=== PATIENT | male | born 1965 | race Caucasian/White ===

== ENCOUNTER 2021-05-11 17:28 | Inpatient (IN) | payer OTHER, SELFPAY ==
--- NOTE | ~2021-05-11 | CT_ITS ---
EXAMINATION: CT ABDOMEN AND PELVIS WITHOUT CONTRAST CLINICAL INFORMATION: Left flank pain. Umbilical hernia. COMPARISON: None TECHNIQUE: Multidetector volumetric imaging was performed from the superior aspect of the liver through the pubic symphysis. Sagittal and coronal reformatted images were obtained on the technologist's workstation. This CT examination was performed using dose optimization techniques as appropriate, variously including the following: *Automated exposure control *Adjustment of mA and/or kV according to patient size (this includes techniques or standardized protocols for targeted exams where dose is matched to indication/reason for exam; i.e. extremities or head) *Use of iterative reconstruction technique DLP: 661 mGy-cm FINDINGS: LUNG BASES: The visualized lung bases are unremarkable. LIVER, GALLBLADDER, AND BILIARY TREE: The liver is normal in size, shape, and attenuation. No focal hepatic lesion or biliary ductal dilatation is present. The gallbladder is unremarkable with no evidence of radiopaque gallstones, gallbladder wall thickening, or obvious pericholecystic inflammatory changes. PANCREAS: Unremarkable. SPLEEN: Unremarkable. ADRENAL GLANDS: Unremarkable. KIDNEYS AND URETERS: The kidneys are normal in size, shape, and attenuation. No hydronephrosis or hydroureter. There is a left upper pole 0.4 cm calculus which is 11 cm from the posterior axillary line. BLADDER: Unremarkable. GASTROINTESTINAL TRACT: The stomach is unremarkable. Normal caliber small bowel. There is no obstruction. Colonic diverticulosis is present. There is focal significant colonic wall thickening at the distal descending colon. Prominent adjacent inflammation. No fluid collection. No free air. ABDOMINAL WALL: Small fat-containing umbilical hernia. No inflammatory change. LYMPH NODES: Normal. VASCULAR: Unremarkable. PELVIC VISCERA: The prostate and seminal vesicles are unremarkable. OSSEOUS STRUCTURES: No acute or suspicious osseous abnormality. CT/CT abdomen pelvis wo con IMPRESSION: Acute diverticulitis of the distal descending colon. No free air or fluid collection.
[2021-05-11 19:35] VITALS: BP 146/92; PULSE 81; RESP 20; TEMP 37.2; O2SAT 100; BMI 28.0
[2021-05-11 19:52] LABS: Appearance Urine HAZY; Color Urine DK YELLOW; Glucose Urine UA NEG (NEG); Leukocyte Esterase Urine TRACE (NEG); Nitrite Urine NEG (NEG); Specific Gravity - Urine 1.015 (1.005-1.025); UACC Culture Trigger YES; Urine Blood 2+ (NEG); Urine Ketones NEG (NEG); Urine Protein 1+ MG/DL (NEG-TRACE)
[2021-05-11 20:28] LABS: Mucus Urine 2+ /LPF; Squamous Epithelial Cell Urine 1+ /LPF
[2021-05-11 20:29] LABS: Bacteria Urine TRACE /LPF; WBC Urine 0-2 /HPF (0-4)
[2021-05-11 20:33] LABS: Basophils Percent Auto 0.1 % (0-2); Eosinophils Percent Auto 0.1 % (0-4); Hematocrit 38.2 % (42-52); Hemoglobin 13.4 g/dl (14.0-18.0); Imm Gran Abs Auto 0.06 X10*3/uL (0.00-0.03); Imm Gran Pct Auto 0.4 % (0.0-0.4); Lymphocytes Absolute Auto 1.5 X10*3/uL (1.2-4.9); Lymphocytes Percent Auto 8.9 % (20-40); MANUAL DIFF FLAG SCAN; Mean Corpuscular HGB Conc 35.1 g/dl (31.0-36.0); Mean Corpuscular Hemoglobin 31.6 pg (27.0-33.0); Mean Corpuscular Volume 90.1 fL (80-98); Mean Platelet Volume 9.6 fL (9.4-12.4); Monocytes Absolute Auto 1.6 X10*3/uL (0.1-1.2); Monocytes Percent Auto 9.3 % (2-11); Neutrophils Absolute Auto 13.6 X10*3/uL (2.0-8.3); Neutrophils Percent Auto 81.2 % (45-73); Platelet Count 189 X10*3/uL (160-400); Red Blood Count 4.24 X10*6/uL (4.60-5.80); Red Cell Distribution Width 11.9 % (11.0-16.0); SCAN SMEAR FLAG 1; White Blood Count 16.7 X10*3/uL (4.8-10.8)
[2021-05-11 20:39] LABS: Anion Gap 11 (12-20); Blood Urea Nitrogen 11 mg/dL (9-16); Calcium 9.4 mg/dL (8.4-10.2); Carbon Dioxide 27 mmol/L (22-29); Chloride 103 mmol/L (96-108); Creatinine Clr Calc Pharmacy 88.9; Estimated Glomerular Filt Rate > 60; Glucose Random 102 mg/dL (60-115); Potassium 4.1 mmol/L (3.3-5.1); Sodium 137 mmol/L (135-145)
[2021-05-11 20:49] LABS: SLIDE REVIEW VERIFIED
[2021-05-11 23:25] VITALS: BP 106/64; PULSE 104; RESP 15; O2SAT 93
--- NOTE | 2021-05-12 00:30 | ED.GENADULT ---
HPI - General Adult General Chief complaint: General Medical Stated complaint: Umbilical hernia Time Seen by Provider: 05/12/21 00:09 Source: patient Mode of arrival: ambulatory Limitations: no limitations History of Present Illness HPI narrative: 55-year-old male who presents emergency department for evaluation of left flank pain and abdominal pain x2. Patient states that yesterday he had a sudden onset of left-sided flank pain. He describes the pain as if someone is punching him constantly in his left flank area. The pain does radiate to his left lower abdomen into his testicles. He states the pain is a constant 10/10 pain. He denied frequency, urgency or dysuria. Patient also has an umbilical hernia that he has had for months any scheduled for hernia repair at [facility] in June of 2021. He states that when he saw the [facility] surgeon 3 months ago, the surgeon pushed on the umbilical hernia to reduce it. The patient states that the reduction was unsuccessful but since then he is having pain is umbilical area. He states for the past 2 days the umbilical hernia is more painful and is hard. He denied fever, chills, chest pain, shortness of breath, nausea, vomiting, changes bowel movements. Related Data Allergies Allergy/AdvReac Type Severity Reaction Status Date / Time No Known Allergies Allergy Verified 05/12/21 00:28 Review of Systems Review of Systems: Yes all other systems are reviewed and are negative [facility] Past Medical History [facility] Narrative: Past medical history: hypertension, umbilical hernia Past surgical history: None. Social history: Denies tobacco use. The patient does drink alcohol on the weekends he states that he drinks 3-4 beers over weekend. He denies drug use. Medical History HTN (hypertension) Umbilical hernia Social History Social History Advance Directives: No Physical Exam Vital Signs: Vital Signs: Last Vital Signs Temp 98.9 F 05/11/21 19:35 Pulse 104 H 05/11/21 23:25 Resp 15 05/11/21 23:25 BP 106/64 05/11/21 23:25 Pulse Ox 93 05/11/21 23:25 Body Mass Index 28.0 Const: General: cooperative and no acute distress Orientation/consciousness: oriented to person and oriented to place Limitations: no limitations HENMT: Head: Yes normal to inspection, Yes normocephalic and Yes atraumatic Ears: external ears normal General nose exam: Normal external nose present Face and sinus: Yes normal facial exam Mouth: Normal oral and palatal mucosa present Throat: Yes posterior oropharynx normal Eyes: General: appearance normal, both eyes and all related structures Pupils: Equal, round and reactive pupils present Neck: Neck: Yes normal visual inspection, Yes no lymphadenopathy, Yes trachea midline and Yes supple Chest: Chest palpation & inspection: normal inspection of the chest and normal palpation of entire chest wall Resp: Effort & Inspection: normal respiratory effort and able to speak in complete sentences Auscultation: clear to auscultation bilaterally Cardio: Rate: regular rate Rhythm: regular rhythm Heart sounds: S1 normal heart sound present, S2 normal heart sound present and no murmurs GI: Inspection: Yes normal to inspection Palpation (GI): Soft to palpation, Tenderness to palpation present (GI) in the LLQ (Moderate) and periumbilically (Umbilical hernia which is hard, very tender to palpation, not easily reducible) and no guarding Auscultation: normal bowel sounds : General: Yes CVA tenderness (Left, moderate) Back/Spine/Pelvis: Back: CVA tenderness (Left, moderate) Skin: General skin exam: no rashes or lesions noted Neuro: General: oriented to person and oriented to place Cranial nerves: Yes CN's II-XII intact bilaterally and Yes Equal, round and reactive pupils present Cognition (Neuro): normal cognition Motor exam (neuro): 5/5 motor strength present throughout Extrem: General: Yes normal to inspection Psych: Appearance: grossly normal Speech and movement: Normal speech and movement present Affect: normal affect Attitude: cooperative Thought process: Normal thought process present Thought content: Normal thought content present Course Course Course Narrative: 55-year-old male who presents emergency department for evaluation of left flank pain and periumbilical pain times 2 days. The pain came on suddenly in the left flank area does radiate the left lower quadrant into his left testicle. Patient does have an umbilical hernia as well which the patient states is hard and more tender than usual. Vital signs revealed elevated blood pressure of 146/92 and tachycardia with a pulse of 104. Physical examination did reveal left-sided CVA tenderness as well as tenderness with palpation of his left lower quadrant. He also has tenderness with palpation over the umbilical hernia, the hernias hard and not easily reducible. Laboratory evaluation revealed an elevated WBC of 16,700, kidney function was normal. Urinalysis revealed 2+ blood and trace leukocyte esterase. Microscopic revealed up to 14 RBCs no WBCs and trace bacteria. Differential includes but is not limited to kidney stone, ureteral stone, diverticulitis, incarcerated umbilical hernia. Patient was ordered to get Toradol [address] scan of the abdomen pelvis without IV contrast will be obtained. 0128: The patient's CT scan of the abdomen pelvis revealed descending diverticulitis with colon wall thickening with no free air or perforation. The patient does have a left lower pole 4 mm kidney stone and an umbilical hernia containing fat only, these are not the cause of his pain. The patient only had minimal relief with the IV Toradol. He was ordered to get Levaquin 750 mg IV and Flagyl 500 mg IV. His pain will be treated with morphine 4 mg IV and was also ordered to get normal saline x1 L. 0259: The patient got no relief the 1st dose of morphine. Patient was ordered to get a 2nd dose of morphine 4 mg IV. The patient's abdominal exam showed that he still has significant left lower quadrant tenderness but this is unchanged Given his persistent pain and tenderness , IM concerned that the patient will not be able to control his pain at home, therefore I will discuss the patient's presentation with the covering hospitalist for admission. 0348: I did discuss the patient's presentation with the covering hospitalist, Dr. Cardenas and the patient will be admitted to the hospital service for further treatment. Medical Decision Making Lab Data Result diagrams: 05/11/21 20:14 05/11/21 20:14 Labs: Lab Results 05/11/21 05/11/21 05/11/21 Range/Units 19:46 20:14 20:14 WBC 16.7 H (4.8-10.8) X10*3/uL RBC 4.24 L (4.60-5.80) X10*6/uL Hgb 13.4 L (14.0-18.0) g/dl Hct 38.2 L (42-52) % MCV 90.1 (80-98) fL MCH 31.6 (27.0-33.0) pg MCHC 35.1 (31.0-36.0) g/dl RDW 11.9 (11.0-16.0) % Plt Count 189 (160-400) X10*3/uL MPV 9.6 (9.4-12.4) fL Immature Gran % (Auto) 0.4 (0.0-0.4) % Neut % (Auto) 81.2 H (45-73) % Lymph % (Auto) 8.9 L (20-40) % [place] % (Auto) 9.3 (2-11) % Eos % (Auto) 0.1 (0-4) % Baso % (Auto) 0.1 (0-2) % Lymph # (Auto) 1.5 (1.2-4.9) X10*3/uL [place] # (Auto) 1.6 H (0.1-1.2) X10*3/uL Eos # (Auto) 0.0 (0.0-0.4) X10*3/uL Baso # (Auto) 0.0 (0.0-0.2) X10*3/uL Abs Immat Gran (auto) 0.06 H (0.00-0.03) X10*3/uL Absolute Neuts (auto) 13.6 H (2.0-8.3) X10*3/uL Absolute Nucleated RBC 0.000 (0.0-0.012) X10*3/uL Nucleated RBC % (auto) 0.0 (0.0-0.2) /100WBC Smear Tech's Comments VERIFIED Sodium 137 (135-145) mmol/L Potassium 4.1 (3.3-5.1) mmol/L Chloride 103 (96-108) mmol/L Carbon Dioxide 27 (22-29) mmol/L Anion Gap 11 L (12-20) BUN 11 (9-16) mg/dL Creatinine 1.21 (0.5-1.4) mg/dL Estim Creat Clear Calc 88.9 Estimated GFR > 60 Random Glucose 102 (60-115) mg/dL Calcium 9.4 (8.4-10.2) mg/dL Urine Color DK YELLOW Urine Appearance HAZY Urine pH 7.0 (5.0-8.0) Ur Specific [place] 1.015 (1.005-1.025) Urine Protein 1+ H (NEG-TRACE) MG/DL Urine Glucose (UA) NEG (NEG) MG/DL Urine Ketones NEG (NEG) MG/DL Urine Blood 2+ H (NEG) Urine Nitrite NEG (NEG) Ur Leukocyte Esterase TRACE H (NEG) Urine RBC 10-14 H (0) /HPF Urine WBC 0-2 (0-4) /HPF Ur Squamous Epith Cells 1+ /LPF Urine Bacteria TRACE /LPF Urine Mucus 2+ /LPF
[2021-05-12] MEDS: Ketorolac Tromethamine 15 MG/ML VIAL 30 MG IVPUSH (00:50)
[2021-05-12] MEDS: 0.9 % Sodium Chloride 1,000 ML 999 ML IV (01:59)
[2021-05-12] MEDS: Morphine Sulfate 4 MG/ML CARTRIDGE IVPUSH ×3 (02:01→09:04)
[2021-05-12] MEDS: metroNIDAZOLE/NS 500 MG/100 ML PIGGYBACK 100 MG IV ×4 (02:03→20:28)
[2021-05-12] MEDS: levoFLOXacin 750 MG TABLET PO (02:06)
--- NOTE | 2021-05-12 03:45 | P.HPHOSP_ITS ---
History of Present Illness Date of Service: 05/12/21 Chief Complaint: Abdominal pain This is a 55-year-old male with past medical history of hypertension who presents to the hospital with complaints of left lower quadrant abdominal pain that started yesterday. Patient reports the pain to be 10/10, constant, show report crampy, radiating to the back, associated with nausea, no vomiting or diarrhea. No constipation. Patient reports a fever of 102.5 at home. He is also having chills. Denies any chest pain, no shortness of breath, no headache or change in vision, no cough. No urinary symptoms and no lower extremity edema. Patient reports history of umbilical hernia status post hernia repair. On arrival to the ED patient's vital significant for heart rate of 104, temperature of 98.9?, respiratory rate of 15, blood pressure of 106/64, satting 100% on room air Labs are significant for WBC count of 16.7, hemoglobin of 13.4, UA that is positive for leukocyte Estrace as well as WBC, abdominal pelvic CT shows acute diverticulitis of the distal descending colon with no free air or fluid collection. Patient will be admitted for further management as he has intolerance to pain post IV pain medication. Review of Systems Review of Systems: Yes all other systems are reviewed and are negative [facility] Medical History (Updated 05/12/21 @ 06:26 by Candis Cardenas MD) HTN (hypertension) Umbilical hernia Pertinent family history: No family history pertinent Surgical History (Updated 05/12/21 @ 06:22 by Candis Cardenas MD) H/O hernia repair Social History (Updated 05/12/21 @ 06:23 by Candis Cardenas MD) Alcohol intake: current Patient Tobacco Use Status: Never used Tobacco Use of substances other than those prescribed or required for medical reasons: No Advance Directives: No Meds Allergies Allergy/AdvReac Type Severity Reaction Status Date / Time No Known Allergies Allergy Verified 05/12/21 00:28 Physical Exam Vital Signs and Narrative: Vital Signs: Last Vital Signs Temp 98.9 F 05/11/21 19:35 Pulse 104 H 05/11/21 23:25 Resp 15 05/11/21 23:25 BP 106/64 05/11/21 23:25 Pulse Ox 93 05/11/21 23:25 Body Mass Index 28.0 Const: General: cooperative and no acute distress Orientation/consciousness: patient oriented x3 Eyes: General: appearance normal, both eyes and all related structures Pupils: Equal, round and reactive pupils present Resp: Effort & Inspection: normal respiratory effort Auscultation: clear to auscultation bilaterally Cardio: Rate: regular rate Rhythm: regular rhythm GI: Other: Left quadrant abdominal tenderness, no rebound or guarding Palpation (GI): Soft to palpation Auscultation: normal bowel sounds Skin: General skin exam: no rashes or lesions noted Neuro: General: patient oriented x3 Cranial nerves: Yes Equal, round and reactive pupils present Cognition (Neuro): normal cognition Extrem: General: Yes normal to inspection and Yes no pedal edema Results Labs CBC and Chem 7: 05/11/21 20:14 05/11/21 20:14 Labs: Laboratory Results - last 24 hr 05/11/21 05/11/21 05/11/21 19:46 20:14 20:14 MCV 90.1 MCH 31.6 MCHC 35.1 RDW 11.9 Plt Count 189 MPV 9.6 Immature Gran % (Auto) 0.4 Neut % (Auto) 81.2 H Lymph % (Auto) 8.9 L [place] % (Auto) 9.3 Eos % (Auto) 0.1 Baso % (Auto) 0.1 Lymph # (Auto) 1.5 [place] # (Auto) 1.6 H Eos # (Auto) 0.0 Baso # (Auto) 0.0 Abs Immat Gran (auto) 0.06 H Absolute Neuts (auto) 13.6 H Absolute Nucleated RBC 0.000 Nucleated RBC % (auto) 0.0 Smear Tech's Comments VERIFIED Anion Gap 11 L Estim Creat Clear Calc 88.9 Estimated GFR > 60 Random Glucose 102 Calcium 9.4 Urine Color DK YELLOW Urine Appearance HAZY Urine pH 7.0 Ur Specific [place] 1.015 Urine Protein 1+ H Urine Glucose (UA) NEG Urine Ketones NEG Urine Blood 2+ H Urine Nitrite NEG Ur Leukocyte Esterase TRACE H Urine RBC 10-14 H Urine WBC 0-2 Ur Squamous Epith Cells 1+ Urine Bacteria TRACE Urine Mucus 2+ Imaging Radiologist's Impressions: Impressions Abdomen/Pelvis CT 05/12/21 00:29 IMPRESSION: Acute diverticulitis of the distal descending colon. No free air or fluid collection. Assessment and Plan (1) Diverticulitis: Status: Acute (2) Abdominal pain: Qualifiers: Abdominal location: left lower quadrant Qualified Code(s): R10.32 - Left lower quadrant pain Status: Acute (3) UTI (urinary tract infection): Status: Acute This is a 55-year-old male with past medical history of hypertension who presents to the hospital with complaints of abdominal pain found to have acute diverticulitis # abdominal pain - acute diverticulitis - no evidence of perforation - will start him on IV antibiotics - pain control # diverticulitis - afebrile, has leukocytosis, slight tachycardia - no evidence for perforation on CT scan of the abdomen - will start on IV antibiotics - follow cultures # UTI - denies any urinary symptoms - patient will be on antibiotics for above - follow urine cultures # hypertension - stable DVT prophylaxis: Lovenox Quality Stroke Does the patient have a stroke diagnosis?: No VTE Prior VTE?: No VTE Risk Level:: Medical - moderate - high VTE Device Contraindication: Treatment Not Indicated VTE Drug Contraindication: N/A - Med Ordered
[2021-05-12] MEDS: Enoxaparin Sodium 40 MG/0.4 ML SYRINGE SUBCUT (05:26)
[2021-05-12] MEDS: cefTRIAXone sodium 1 GM in 0.9 % Sodium Chloride 50 ML IV (05:26)
[2021-05-12] MEDS: Dextrose 5 % and Lactated Ring 1,000 ML 50 ML IVCONT (06:17)
[2021-05-12 06:48] LABS: MANUAL DIFF FLAG NO
[2021-05-12 06:58] LABS: Basophils Percent Auto 0.1 % (0-2); Eosinophils Percent Auto 0.2 % (0-4); Hematocrit 36.3 % (42-52); Hemoglobin 12.6 g/dl (14.0-18.0); Imm Gran Abs Auto 0.06 X10*3/uL (0.00-0.03); Imm Gran Pct Auto 0.4 % (0.0-0.4); Lymphocytes Absolute Auto 1.3 X10*3/uL (1.2-4.9); Lymphocytes Percent Auto 8.5 % (20-40); Mean Corpuscular HGB Conc 34.7 g/dl (31.0-36.0); Mean Corpuscular Hemoglobin 31.6 pg (27.0-33.0); Mean Platelet Volume 9.7 fL (9.4-12.4); Monocytes Absolute Auto 1.4 X10*3/uL (0.1-1.2); Monocytes Percent Auto 9.2 % (2-11); Neutrophils Absolute Auto 12.3 X10*3/uL (2.0-8.3); Neutrophils Percent Auto 81.6 % (45-73); Platelet Count 159 X10*3/uL (160-400); Red Blood Count 3.99 X10*6/uL (4.60-5.80); Red Cell Distribution Width 11.9 % (11.0-16.0)
[2021-05-12 07:08] LABS: Anion Gap 10 (12-20); Blood Urea Nitrogen 12 mg/dL (9-16); Carbon Dioxide 25 mmol/L (22-29); Chloride 106 mmol/L (96-108); Creatinine Clr Calc Pharmacy 100.5; Estimated Glomerular Filt Rate > 60; Glucose Random 104 mg/dL (60-115); Sodium 137 mmol/L (135-145)
--- NOTE | 2021-05-12 08:23 | PHA.MEDREC ---
Pharmacy Consult ? Medication Reconciliation Pharmacy has completed the medication reconciliation. There are no remarkable issues for provider's attention. Tala Carrillo, HollisD
[2021-05-12 08:57] VITALS: BP 139/78; PULSE 77; RESP 18; TEMP 36.8; O2SAT 96
[2021-05-12] MEDS: Acetaminophen 325 MG TABLET 650 MG PO (09:04)
[2021-05-12] MEDS: Docusate Sodium 100 MG CAPSULE PO (09:04)
[2021-05-12] MEDS: 0.9 % Sodium Chloride Flush 3 ML SYRINGE IVFLUSH (09:05)
[2021-05-12] MEDS: Ketorolac Tromethamine 15 MG/ML VIAL IVPUSH ×2 (11:01→19:49)
[2021-05-12 11:31] VITALS: BP 121/66; PULSE 69; RESP 20; TEMP 36.9; O2SAT 95
[2021-05-12 13:32] VITALS: BP 124/50; PULSE 67; RESP 18; TEMP 36.6; O2SAT 96
--- NOTE | 2021-05-12 13:36 | PM.EVENT ---
Event Note Date of Service: 05/12/21 Event Note: Gentleman with history of hypertension admitted due to left lower quadrant abdominal pain fever diagnosed to have acute diverticulitis Patient complaining of persistent abdominal pain despite use of IV morphine On examination awake alert Abdomen soft mild left lower quadrant tenderness with deep palpation no rebound, no rigidity Extremities no edema Acute diverticulitis continue IV antibiotics daily 1 continue IV morphine will add scheduled Toradol for 24 hours follow clinical course closely.
--- NOTE | 2021-05-12 13:58 | MHC.CM.PN ---
Addendum entered by Tiana Bruno 05/12/21 14:23: Patient received [employer] on 11/03 and 11/30. Original Note: Met with patient in regards to discharge planning. Patient lives alone, ambulates independently and had no services prior to coming to the hospital. No services anticipated to be needed because patient is not homebound. Patient's vehicle is in the parking lot and he is anticipating being able to drive himself when medically stable. PCP verified as Dr Naidu at [facility]. Patient has a HCP and will attempt to obtain a copy. Continue to monitor for d/c needs.
--- NOTE | 2021-05-12 15:55 | PC.NURSE ---
pt resting comfortably, no discomfort at this time. awaiting bed assignment.
[2021-05-12 16:36] VITALS: BP 138/78; PULSE 60; RESP 16; TEMP 36.7; O2SAT 96
--- NOTE | 2021-05-12 20:40 | PC.NURSE ---
medicated per oct. okay to advance to to clear liquid diet per hospitalist.
--- NOTE | 2021-05-12 21:33 | PC.NURSE ---
Attempting to call report and floor not picking up. Will continue call.
--- NOTE | 2021-05-12 21:42 | PC.NURSE ---
Second attempt to give report. RN will call me back.
--- NOTE | 2021-05-12 21:50 | PC.NURSE ---
Report given. will be transporting pt to unit. Medicated per mar. pt able to tolerate po change well no n/v
[2021-05-12 22:38] VITALS: BP 148/72; PULSE 69; RESP 17; TEMP 36.6; O2SAT 97
[2021-05-12 23:39] VITALS: BP 145/83; PULSE 70; RESP 18; TEMP 37.2; O2SAT 95
[2021-05-13] MEDS: cefTRIAXone sodium 1 GM in 0.9 % Sodium Chloride 50 ML IV (03:46)
[2021-05-13 03:52] VITALS: BP 143/75; PULSE 68; RESP 16; TEMP 37.1; O2SAT 95
[2021-05-13] MEDS: Dextrose 5 % and Lactated Ring 1,000 ML 100 ML IVCONT (05:03)
[2021-05-13] MEDS: Ketorolac Tromethamine 15 MG/ML VIAL IVPUSH (05:04)
[2021-05-13] MEDS: Enoxaparin Sodium 40 MG/0.4 ML SYRINGE SUBCUT (05:04)
[2021-05-13] MEDS: metroNIDAZOLE/NS 500 MG/100 ML PIGGYBACK 100 MG IV ×2 (05:04→20:45)
[2021-05-13 08:00] VITALS: BP 132/73; PULSE 59; RESP 20; TEMP 36.6; O2SAT 95
[2021-05-13] MEDS: Escitalopram Oxalate 20 MG TABLET PO (09:29)
[2021-05-13] MEDS: 0.9 % Sodium Chloride Flush 3 ML SYRINGE IVFLUSH ×2 (09:29→13:53)
--- NOTE | 2021-05-13 11:24 | HO.PM.IMPN ---
Subjective Subjective Date of Service: 05/13/21 Interval History: Being followed for acute diverticulitis and possible UTI, abdominal pain is improving denies nausea, vomiting, passing flatus, no urinary symptoms. Review of Systems General no headache no dizziness no fever chills. CVS no chest pain, no palpitation. Respiratory no cough, no sob Gastrointestinal no nausea, no vomiting, LLQ abdominal pain Physical Exam Vital Signs: Vital Signs: Last Vital Signs Temp 98 F 05/13/21 08:00 Pulse 59 05/13/21 08:00 Resp 20 05/13/21 08:00 BP 132/73 05/13/21 08:00 Pulse Ox 95 05/13/21 08:00 Body Mass Index 28.0 General alert oriented x3,no acute distress. Neck supple no JVD. CVS regular rate rhythm, Respiratory lungs clear to auscultation, no respiratory distress, no wheeze, no rhonchi. Gastrointestinal abdomen soft, LLQ tenderness with deep palpation, distended, no guarding , no rigidity. Extremities no edema. Neuro nonfocal, speech clear. Skin no rash Objective Data Active Medications Acetaminophen (Acetaminophen 325 Mg Tablet) 650 mg PO Q6H PRN PRN Reason: Pain, Mild (Pain Scale 1-3) Last Admin: 05/12/21 09:04 Dose: 650 mg Documented by: XAVIER Docusate Sodium (Docusate Sodium 100 Mg Capsule) 100 mg PO DAILY PRN PRN Reason: Constipation Last Admin: 05/12/21 09:04 Dose: 100 mg Documented by: XAVIER Enoxaparin Sodium (Enoxaparin Sodium 40 Mg/0.4 Ml Syringe) 40 mg SUBCUT Q24H [facility] Last Admin: 05/13/21 05:04 Dose: 40 mg Documented by: GAIL Escitalopram Oxalate (Escitalopram Oxalate 20 Mg Tablet) 20 mg PO DAILY [facility] Last Admin: 05/13/21 09:29 Dose: 20 mg Documented by: BUTCH Ceftriaxone Sodium 1 gm/ (Sodium Chloride) 50 mls @ 100 mls/hr IV Q24H [facility] Last Infusion: 05/13/21 04:53 Dose: 0 mls/hr Documented by: GAIL Metronidazole (Flagyl) 500 mg in 100 mls @ 100 mls/hr IV Q8H [facility] Last Infusion: 05/13/21 06:12 Dose: 0 mls/hr Documented by: GAIL Dextrose/Lactated Ringer's (D5lr) 1,000 mls @ 100 mls/hr IVCONT .Q10H [facility] Last Admin: 05/13/21 05:03 Dose: 100 mls/hr Documented by: GAIL Morphine Sulfate (Morphine Sulfate 4 Mg/Ml Cartridge) 4 mg IVPUSH Q4H PRN; Protocol PRN Reason: Pain, Severe (Pain Scale 7-10) Last Admin: 05/12/21 09:04 Dose: 4 mg Documented by: XAVIER Ondansetron HCl (Ondansetron Hcl 4 Mg/2 Ml Vial) 4 mg IVPUSH Q8H PRN PRN Reason: Nausea and Vomiting Sodium Chloride (0.9 % Sodium Chloride Flush 3 Ml Syringe) 3 ml IVFLUSH QSHIFT [facility] Last Admin: 05/13/21 09:29 Dose: 3 ml Documented by: BUTCH Labs CBC & Chem 7: 05/12/21 06:39 05/12/21 06:38 Microbiology Microbiology Results: Microbiology 05/11/21 Unknown Urine Culture - Preliminary Urine clean catch - Clean Catch Midstream No growth to date. Assessment and Plan (1) Diverticulitis: Status: Acute Assessment and Plan: 55-year-old male with past medical history of hypertension who presents to the hospital with complaints of abdominal pain found to have acute diverticulitis # acute left distal descending colon diverticulitis abdominal pain is improving, CT abdomen showed no evidence of obstruction or perforation, WBC trending down Will continue IV flagyl and ceftriaxone day 2/7, on IV fluids, will DC ivf later, if tolerate diet Will add full liquid diet, recommended out of bed to chair and ambulation Follow CBC, advanced diet as tolerated. # UTI - noted to have positive urinalysis however urine culture is negative therefore no UTI present # hypertension - stable DVT prophylaxis:? Lovenox Quality Stroke Does the patient have a stroke diagnosis?: No VTE Prior VTE?: No VTE Risk Level:: Medical - moderate - high VTE Device Contraindication: Treatment Not Indicated VTE Drug Contraindication: N/A - Med Ordered
[2021-05-13 11:38] VITALS: BP 147/88; PULSE 74; RESP 18; TEMP 36.3; O2SAT 94
--- NOTE | 2021-05-13 13:04 | MHC.CM.PN ---
EMR REVIEWED, PT REMAINS ON IVF, IV CEFTRIAXONE AND HAS BEEN ADVANCED TO FULL LIQUIDS, PER HOSPITALIST ANTICIPATE D/C OVER W/E. D/C PLAN: HOME NO SERVICES, SELF TRANSPORT
[2021-05-13] MEDS: metroNIDAZOLE/NS 500 MG/100 ML PIGGYBACK 111 MG IV (13:53)
[2021-05-13 15:11] VITALS: BP 152/88; PULSE 67; RESP 18; TEMP 36.8; O2SAT 95
[2021-05-13 19:07] VITALS: BP 152/86; PULSE 75; RESP 18; TEMP 36.8; O2SAT 94
[2021-05-13 23:36] VITALS: BP 159/91; PULSE 85; RESP 18; TEMP 36.6; O2SAT 94
[2021-05-14] MEDS: Dextrose 5 % and Lactated Ring 1,000 ML 100 ML IVCONT (00:50)
[2021-05-14 03:58] VITALS: BP 140/78; PULSE 62; RESP 18; TEMP 36.8; O2SAT 94
[2021-05-14] MEDS: Enoxaparin Sodium 40 MG/0.4 ML SYRINGE SUBCUT (05:06)
[2021-05-14] MEDS: cefTRIAXone sodium 1 GM in 0.9 % Sodium Chloride 50 ML IV (05:07)
[2021-05-14] MEDS: metroNIDAZOLE/NS 500 MG/100 ML PIGGYBACK 100 MG IV (05:45)
[2021-05-14 07:27] VITALS: BP 142/66; PULSE 60; RESP 18; TEMP 36.2; O2SAT 95
--- NOTE | 2021-05-14 08:25 | PM.DS ---
DS: Providers Provider Date of Service: 05/14/21 Date of admission: 05/12/21 03:44 Primary care physician: Unknown Physician DS: Diagnosis Discharge Diagnosis (1) Diverticulitis: Status: Acute DS: Summary Hospital Course Hospital Course: Date of Service: 05/12/21 Chief Complaint: Abdominal pain This is a 55-year-old male with past medical history of hypertension who presents to the hospital with complaints of left lower quadrant abdominal pain that started yesterday.? Patient reports the pain to be 10/10, constant, show report crampy, radiating to the back, associated with nausea, no vomiting or diarrhea.? No constipation.? Patient reports a fever of 102.5 at home.? He is also having chills.? Denies any chest pain, no shortness of breath, no headache or change in vision, no cough.? No urinary symptoms and no lower extremity edema.? Patient reports history of umbilical hernia status post hernia repair. On arrival to the ED patient's vital significant for heart rate of 104, temperature of 98.9?, respiratory rate of 15, blood pressure of 106/64, satting 100% on room air Labs are significant for WBC count of 16.7, hemoglobin of 13.4, UA that is positive for leukocyte Estrace as well as WBC, ?abdominal pelvic CT shows acute diverticulitis of the distal descending colon with no free air or fluid collection. Patient will be admitted for further management as he has intolerance to pain post IV pain medication. Hospital course: # acute left distal descending colon diverticulitis as evident on CT, no abscess, no perforation, or obstruction. Treated with IV Ceftriaxone and IV Flagyl and has markedly improved and presently without pain, diet is advanced to low residue diet which he is tolerating. Will transitioned to oral Ceftin and Flagyl for aditional 5 days and to follow up with PCP within a week. # UTI- noted to have positive urinalysis however urine culture is negative therefore no UTI present # hypertension- resume home meds. Time Spent with Patient Time attestation: Total time spent providing and/or coordinating discharge services: Discharge coordination time: Greater than 30 minutes Quality: Stroke Does the patient have a stroke diagnosis?: No Physical Exam Vital Signs: Vital Signs: Last Vital Signs Temp 97.1 F 05/14/21 07:27 Pulse 60 05/14/21 07:27 Resp 18 05/14/21 07:27 BP 142/66 H 05/14/21 07:27 Pulse Ox 95 05/14/21 07:27 Body Mass Index 28.0 General: AO X 3, no acute distress Resp: CTA bilateral CVS: S1,S2,RRR GI: +BS, NT, no distention Skin: No rash Neuro: motor grossly intact Psych: appropriate affect Discharge Plan Discharge Anticipated Discharge Date/Time: 05/14/21 08:18 Patient Disposition: Home, Self-Care Discharge Diagnosis: Acute diverticulitis Referrals: Physician,Unknown J [Primary Care Provider] - 1 Week Discharge Medications: New cefuroxime axetil 500 mg tablet 500 mg PO BID 7 Days Qty: 10 RF: 0 metronidazole 500 mg tablet 500 mg PO Q8H 5 Days Qty: 15 RF: 0 Continued amlodipine 2.5 mg tablet 1 tab PO DAILY RF: 0 hydrochlorothiazide 25 mg tablet 1 tab PO DAILY RF: 0 losartan 100 mg tablet 1 tab PO DAILY RF: 0 loratadine [Claritin] 10 mg Tablet 10 mg PO DAILY PRN (Reason: Allergy Symptoms) RF: 0 B-complex with vitamin C Tablet 1 tab PO DAILY RF: 0 escitalopram oxalate 20 mg tablet 1 tab PO DAILY RF: 0 Discharge Orders: Discharge Order (Routine); Ordered 05/14/21 Ordered By: Michael Moncada Diet: advance to usual diet Activity on Discharge: As tolerated Stand Alone Forms: Patient Portal Discharge page Care Plan Goals: recovery from diverticulitis Health Concerns: Acute diverticulitis Plan of Treatment: Take cefuroxime and Flagyl as recommended and follow up with your primary care doctor within a week, call for appointment. Assessment: See above
[2021-05-14] MEDS: Escitalopram Oxalate 20 MG TABLET PO (09:35)
--- NOTE | 2021-05-14 11:15 | MHC.CM.PN ---
PATIENT IS DISCHARGED TO HOME - SELF CARE. HE IS ABLE TO ARRANGE FOR TRANSPORTATION HOME. RN AWARE OF PLAN.
== END 2021-05-14 12:49 | disposition home or self-care (01) | DRG 392 ==
LOC: HO.ED 05-12 03:49 → HO.EDOVER 05-12 03:56 → HO.S3 05-12 20:46
PROVIDERS: Admitting Provider Internal Medicine; Emergency Provider Emergency Medicine Emergency Medical Services; PCP Family Medicine; Visit Provider Internal Medicine
DX: K57.32 Diverticulitis of large intestine without perforation or abscess without bleeding (principal); I10 Essential (primary) hypertension; Z79.899 Other long term (current) drug therapy
CPT/HCPCS: 36415; 74176; 80048; 81001; 85025; 87086; 99218; 99285; J0696; J1650; J1885; J2270